=== PATIENT | female | born 1995 | race American Indian/Alaskan Native ===

== ENCOUNTER 2019-08-19 22:52 | Emergency (ER) | payer SELFPAY ==
[2019-08-19 23:57] LABS: Bilirubin,Urine NEG (Negative); Blood,Urine NEG (Negative); Color,Urine Yellow (Yellow); HCG Qualitative,Urine Negative (Negative); Mucus,Urine FEW /HPF; Protein,Urine <15 mg/dL mg/dL (Negative)
--- NOTE | 2019-08-20 01:38 | Emergency Department Report ---
ED General Adult HPI - General Chief complaint: Abdominal Pain Stated complaint: LEG, HEAD, HAND, PAIN Source: patient Mode of arrival: Ambulatory Limitations: No Limitations - History of Present Illness Initial comments: 24yo female states that she was arrested earlier and while she was handcuffed she was laid on. She states than an officer laid across her with his body weight. -: Sudden Location: upper extremity, lower extremity Radiation: non-radiation Severity scale (0 -10): 9 Quality: aching Consistency: constant Improves with: none Worsens with: movement Treatments Prior to Arrival: none - Related Data Allergies Allergy/AdvReac Type Severity Reaction Status Date / Time No Known Allergies Allergy Verified 08/19/19 22:58 ED Review of Systems ROS: Stated complaint: LEG, HEAD, HAND, PAIN Other details as noted in HPI ED Past Medical Hx - Past Medical History Previous Medical History?: Yes Additional medical history: ovarian cyst - Surgical History Past Surgical History?: No - Social History Smoking Status: Current Every Day Smoker Substance Use Type: None ED Physical Exam - General Limitations: No Limitations General appearance: alert, in no apparent distress - Head Head exam: Present: atraumatic, normocephalic - Eye Eye exam: Present: normal appearance, PERRL, EOMI Pupils: Present: normal accommodation - ENT ENT exam: Present: normal exam, normal orophraynx - Neck Neck exam: Present: normal inspection, tenderness (R sided neck tenderness) - Respiratory Respiratory exam: Present: normal lung sounds bilaterally - Cardiovascular Cardiovascular Exam: Present: regular rate, normal rhythm, normal heart sounds - GI/Abdominal GI/Abdominal exam: Present: soft, distended, normal bowel sounds - Rectal Rectal exam: Present: deferred - Extremities Exam Extremities exam: Present: tenderness (tenderness at the R and L ankle; tenderness of the R knee) - Back Exam Back exam: Present: normal inspection, full ROM - Neurological Exam Neurological exam: Present: alert, altered, oriented X3 - Psychiatric Psychiatric exam: Present: normal affect, normal mood - Skin Skin exam: Present: other (erythematous stuart on the R wrist, R and L lower legs, and both ankles) ED Course Vital Signs 08/19/19 08/20/19 23:01 02:41 Temperature 98.1 F Pulse Rate 77 81 Respiratory 18 18 Rate Blood Pressure 108/72 120/74 [Right] O2 Sat by Pulse 100 100 Oximetry ED Medical Decision Making - Radiology Data Radiology results: report reviewed - Medical Decision Making Pt's imaging result showed no fractures. She was told to take Motrin as needed. Pt verbalized understanding of the plan of care and agreed. Pt was instructed to f/u with PCP and see ED as needed. Critical care attestation.: If time is entered above; I have spent that time in minutes in the direct care of this critically ill patient, excluding procedure time. ED Disposition Clinical Impression: Leg pain, bilateral, Bilateral ankle pain, Bilateral wrist pain Disposition: - TO HOME OR SELFCARE Is pt being admited?: No Does the pt Need Aspirin: No Condition: Stable Additional Instructions: Pt was told to take Motrin as needed. She verbalized understanding of the plan of care and agreed. Pt was instructed to f/u with PCP and see ED as needed. Referrals: PRIMARY CARE, [Primary Care Provider] - 3-5 Days Time of Disposition: 03:21
[2019-08-20 02:42] VITALS: BP 120/74
--- NOTE | 2019-08-20 02:51 | XRay Report ---
XR LEFT KNEE 3 VIEWS INDICATION / CLINICAL INFORMATION: pain COMPARISON: None available. FINDINGS: BONES / JOINT(S): No acute fracture or subluxation. No significant arthritis. SOFT TISSUES: No significant abnormality. ADDITIONAL FINDINGS: None. Signer Name: Leana Figueroa MD Signed: 08/20/2019 2:47 AM Workstation Name: [id number]
--- NOTE | 2019-08-20 02:52 | XRay Report ---
XR RIGHT KNEE 3 VIEWS INDICATION / CLINICAL INFORMATION: pain COMPARISON: None available. FINDINGS: BONES / JOINT(S): No acute fracture or subluxation. No significant arthritis. SOFT TISSUES: No significant abnormality. ADDITIONAL FINDINGS: None. Signer Name: Leana Figueroa MD Signed: 08/20/2019 2:47 AM Workstation Name: [email or web address]
--- NOTE | 2019-08-20 02:53 | XRay Report ---
X-RAY LEFT ANKLE 3 VIEWS INDICATION / CLINICAL INFORMATION: pain COMPARISON: None available. FINDINGS: BONES / JOINT(S): No acute fracture or subluxation. No significant arthritis. SOFT TISSUES: No significant abnormality. ADDITIONAL FINDINGS: None. Signer Name: Leana Figueroa MD Signed: 08/20/2019 2:49 AM Workstation Name: [id number]
== END 2019-08-20 03:34 | disposition home or self-care (01) ==
LOC: ED 22:52
DX: M25.571 Pain in right ankle and joints of right foot (principal); M25.572 Pain in left ankle and joints of left foot; M25.531 Pain in right wrist; M25.532 Pain in left wrist; F17.200 Nicotine dependence, unspecified, uncomplicated
CPT/HCPCS: 81001; 81025; 99284

== ENCOUNTER 2019-09-18 13:12 | Emergency (ER) | payer SELFPAY ==
--- NOTE | 2019-09-18 15:57 | Event Note ---
ED Screening Note Date of service: 09/18/19 Time: 15:51 ED Screening Note: Patient c/o right thumb pain. She states she injured it about 2 weeks ago during an encounter with the police. She was seen here and had xrays but no fx. 3 days ago noticed swelling and pain around nail bed. had nails done 2 weeks ago and 2 days ago again. This initial assessment/diagnostic orders/clinical plan/treatment(s) is/are subject to change based on patients health status, clinical progression and re-assessment by fellow clinical providers in the ED. Further treatment and workup at subsequent clinical providers discretion. Patient/guardian urged not to elope from the ED as their condition may be serious if not clinically assessed and managed. Initial orders include: Adacel I&D Lidocaine
[2019-09-18] MEDS ORDERED: TETANUS,DIPH,PERTUSS(ACELL) VACCINE 0.5 ML SYRINGE IM ONE (15:58)
[2019-09-18] MEDS ORDERED: LIDOCAINE (1%) 10 MG/1 ML VIAL 20 ML MDV INFILTRATI ONE (15:59)
[2019-09-18] MEDS ORDERED: ACETAMINOPHEN 325 MG TAB PO ONE (18:35)
[2019-09-18] MEDS ORDERED: IBUPROFEN 400 MG TAB PO ONE (18:35)
[2019-09-18] MEDS ORDERED: SULFAMETHOXAZOLE/TRIMETHOPRIM 800/160MG DS TAB PO ONE (18:36)
--- NOTE | 2019-09-18 19:42 | Emergency Department Report ---
ED General Adult HPI - General Chief complaint: Extremity Injury, Upper Stated complaint: BODY PAIN Time Seen by Provider: 09/18/19 15:51 Source: patient Mode of arrival: Ambulatory Limitations: No Limitations - History of Present Illness Initial comments: Patient is a 24-year-old, [place] female who presented to the ED with distal right thumb swelling, severe pain and erythematous rash for 2 weeks, worse in the last 2 days. Patient denies dizziness, numbness, tingling or weakness of right hand, fever, chills, nausea and vomiting. Patient says that she had artificial nails that puncture the right thumb at the base of the nail bed when she was in police custody weeks ago. Patient states that the pain is worsened the last 1 week is within the last 2 days with swelling such that she is unable to perform an active range of motion of the right thumb. MD Complaint: right thumb swollen painful rash -: Sudden, week(s) (2) Location: upper extremity (right thumb) Radiation: distal (right thumb) Severity scale (0 -10): 10 Quality: aching, sharp Consistency: constant Improves with: none Worsens with: movement Associated Symptoms: denies other symptoms. denies: confusion, cough, diaphoresis, fever/chills, headaches, loss of appetite, nausea/vomiting, shortness of breath, weakness, other Treatments Prior to Arrival: none - Related Data Previous Rx's Medication Instructions Recorded Last Taken Type Acetaminophen/Codeine [Tylenol 1 tab PO Q6H PRN #12 tab 09/18/19 Unknown Rx /Codeine # 3 tab] Ibuprofen [Motrin] 400 mg PO Q8H PRN #20 tablet 09/18/19 Unknown Rx Sulfamethoxazole/Trimethoprim 1 each PO Q12H #20 tablet 09/18/19 Unknown Rx [Bactrim DS TAB] Allergies Allergy/AdvReac Type Severity Reaction Status Date / Time No Known Allergies Allergy Verified 08/19/19 22:58 ED Review of Systems ROS: Stated complaint: BODY PAIN Other details as noted in HPI Constitutional: denies: chills, fever Eyes: denies: eye pain, eye discharge, vision change ENT: denies: ear pain, throat pain Respiratory: denies: cough, shortness of breath, wheezing Cardiovascular: denies: chest pain, palpitations Endocrine: no symptoms reported Gastrointestinal: denies: abdominal pain, nausea, diarrhea Genitourinary: denies: urgency, dysuria, discharge Musculoskeletal: joint swelling (right thumb), arthralgia (Swollen painful distal right thumb with erythematous rash). denies: back pain Skin: rash (erythematous distal right thumb swelling), change in color (mildly erythematous rash on distal right thumb). denies: lesions, change in hair/nails, pruritus Neurological: denies: headache, weakness, paresthesias Psychiatric: denies: anxiety, depression Hematological/Lymphatic: denies: easy bleeding, easy bruising ED Past Medical Hx - Past Medical History Additional medical history: ovarian cyst - Social History Smoking Status: Current Every Day Smoker Substance Use Type: None - Medications Home Medications: Home Medications Medication Instructions Recorded Confirmed Last Taken Type Acetaminophen/Codeine [Tylenol 1 tab PO Q6H PRN #12 tab 09/18/19 Unknown Rx /Codeine # 3 tab] Ibuprofen [Motrin] 400 mg PO Q8H PRN #20 tablet 09/18/19 Unknown Rx Sulfamethoxazole/Trimethoprim 1 each PO Q12H #20 tablet 09/18/19 Unknown Rx [Bactrim DS TAB] ED Physical Exam - General Limitations: No Limitations General appearance: alert, in no apparent distress - Head Head exam: Present: atraumatic, normocephalic, normal inspection - Eye Eye exam: Present: normal appearance, PERRL, EOMI Pupils: Present: normal accommodation - ENT ENT exam: Present: normal exam, normal orophraynx, mucous membranes moist, TM's normal bilaterally, normal external ear exam - Neck Neck exam: Present: normal inspection, full ROM. Absent: tenderness, lymphadenopathy, thyromegaly - Respiratory Respiratory exam: Present: normal lung sounds bilaterally. Absent: respiratory distress, wheezes, rales, rhonchi, chest wall tenderness, decreased breath sounds, prolonged expiratory - Cardiovascular Cardiovascular Exam: Present: regular rate, normal rhythm, normal heart sounds. Absent: systolic murmur, diastolic murmur, rubs, gallop - GI/Abdominal GI/Abdominal exam: Present: soft, normal bowel sounds. Absent: distended, tenderness, guarding, rebound, hyperactive bowel sounds, hypoactive bowel sounds - Extremities Exam Extremities exam: Present: normal inspection, full ROM, tenderness (distal right thumb tenderness with swelling due to erythematous rash), normal capillary refill, joint swelling (distal right thumb). Absent: pedal edema, calf tenderness - Back Exam Back exam: Present: normal inspection, full ROM - Neurological Exam Neurological exam: Present: alert, oriented X3, CN II-XII intact, normal gait, reflexes normal - Psychiatric Psychiatric exam: Present: normal affect, normal mood - Skin Skin exam: Present: warm, dry, intact, normal color, rash (erythematous swollen rash on distal right thumb with tenderness), erythema ED Course Vital Signs 09/18/19 09/18/19 18:45 18:46 Respiratory 18 18 Rate - Reevaluation(s) Reevaluation #1: 09/18/19 20:05 This is a 24-year-old female who presented to the ED with painful swollen distal right thumb with erythematous rash for 2 weeks, worse in the last 1 week. In the ED, patient is alert and oriented 3 and is not in distress but anxious. Patient was treated for pain and also given initial oral antibiotics indicated. Right thumb paronychia was incised and drained per protocol outpatient procedure well. Patient was discharged home on medications including antibiotics and pain medications, and was advised to follow-up with her primary care physician in 7- 10 days for reevaluation or return to the ED immediately if symptoms get worse. - I & D Right Distal Finger Type of Procedure: Simple Site: distal right thumb Blade Size: 11 I & D Procedure: betadine prep, sterile drapes applied, sterile dressing applied, gauze wick placed Progress: Upon application of lidocaine 1% for anesthesia, the wound was cleaned t horoughly and incised and drained. Copious amounts of purulent discharge drained from the wound. The wound was then thoroughly cleaned and debrided and a sterile gauze wick used to pack the wound. The wound was then dressed appropriately and patient discharged home on pain medications and oral antibiotics. Patient tolerated the procedure well. Patient was advised to remove the packing after 2 days, clean the wound and dressed with Band-Aid and continue taking the antibiotics. Patient was advised to follow-up with her primary care physician in 7-10 days for reevaluation or return to the ED immediately if symptoms get worse. ED Medical Decision Making - Medical Decision Making This is a 24-year-old female who presented to the ED with painful swollen distal right thumb with erythematous rash for 2 weeks, worse in the last 1 week. In the ED, patient is alert and oriented 3 and is not in distress but anxious. Patient was treated for pain and also given initial oral antibiotics indicated. Right thumb paronychia was incised and drained per protocol outpatient procedure well. Patient was discharged home on medications including antibiotics and pain medications, and was advised to follow-up with her primary care physician in 7- 10 days for reevaluation or return to the ED immediately if symptoms get worse. - Differential Diagnosis paronychia of right thumb; cellulitis of right thumb Critical care attestation.: If time is entered above; I have spent that time in minutes in the direct care of this critically ill patient, excluding procedure time. ED Disposition Clinical Impression: Acute paronychia of right thumb, Cellulitis of right thumb Disposition: DC- TO HOME OR SELFCARE Is pt being admited?: No Does the pt Need Aspirin: No Condition: Stable Instructions: Paronychia (ED) Additional Instructions: Take medications with food, drink plenty of fluids and follow-up with your primary care physician in 7-10 days for reevaluation. Return to the ED immediately if symptoms get worse. Prescriptions: Sulfamethoxazole/Trimethoprim [Bactrim DS TAB] 1 each PO Q12H #20 tablet Ibuprofen [Motrin] 400 mg PO Q8H PRN #20 tablet PRN Reason: Pain , Severe (7-10) Acetaminophen/Codeine [Tylenol /Codeine # 3 tab] 1 tab PO Q6H PRN #12 tab PRN Reason: Pain , Severe (7-10) Referrals: PRIMARY CARE, [Primary Care Provider] - 3-5 Days Time of Disposition: 19:38 Print Language: URDU
[2019-09-18 20:05] VITALS: BP 118/84
== END 2019-09-18 20:04 | disposition home or self-care (01) ==
LOC: ED 13:12
DX: L03.011 Cellulitis of right finger (principal); F17.200 Nicotine dependence, unspecified, uncomplicated; Z79.899 Other long term (current) drug therapy

== ENCOUNTER 2020-08-14 14:28 | Emergency (ER) | payer SELFPAY ==
[2020-08-14] MEDS ORDERED: MORPHINE 2 MG/1 ML INJ IV ONE (14:33)
[2020-08-14] MEDS ORDERED: ONDANSETRON 4 MG/2 ML INJ IV ONE (14:33)
[2020-08-14] MEDS ORDERED: SODIUM CHLORIDE 0.9% 1000 ML 1,000 ML IV ONE (15:16)
[2020-08-14] MEDS ORDERED: MORPHINE 4 MG/1 ML INJ IV ONE (15:19)
--- NOTE | 2020-08-14 15:20 | Emergency Department Report ---
HPI - General Chief Complaint: Abdominal Pain Time Seen by Provider: 08/14/20 15:04 - HPI HPI: Room 8 The patient is a 25-year-old female present with a chief complaint of abdominal pain. Patient states she is has a history of intermittent abdominal pain for the past 5 years attributed to ovarian cyst. Patient states the pain began again 4 days ago. Patient states the pain is in the right abdomen and intermittent in nature. Patient states she has not had an appetite for the past 4 days. Patient denies dysuria, hematuria or vaginal discharge. Patient states she's never had a cycle ED Past Medical Hx - Past Medical History Additional medical history: ovarian cyst - Surgical History Past Surgical History?: No - Social History Smoking Status: Current Every Day Smoker (1 pack/day) Substance Use Type: None (Denies illicit drug use), Alcohol (Occasional) - Medications Home Medications: Home Medications Medication Instructions Recorded Confirmed Last Taken Type Ibuprofen [Motrin] 400 mg PO Q8H PRN #20 tablet 09/18/19 08/14/20 Unknown Rx Sulfamethoxazole/Trimethoprim 1 each PO Q12H #20 tablet 09/18/19 08/14/20 Unkno wn Rx [Bactrim DS TAB] HYDROcodone/APAP 5-325 [[place] 1 - 2 each PO Q6HR PRN #10 tablet 08/14/20 Unknown Rx 5/325] Ondansetron [Zofran ODT TAB] 8 mg PO Q8HR #20 tab.rapdis 08/14/20 Unknown Rx Sulfamethoxazole/Trimethoprim 1 each PO BID #14 tablet 08/14/20 Unknown Rx [Bactrim DS TAB] ED Review of Systems ROS: Stated complaint: ABDOMINAL PAIN Other details as noted in HPI Constitutional: denies: fever Respiratory: no symptoms reported Endocrine: no symptoms reported Gastrointestinal: abdominal pain, nausea, vomiting Genitourinary: denies: dysuria, hematuria, discharge Physical Exam - Physical Exam Vital Signs: Vital Signs 08/14/20 08/14/20 14:31 14:52 Temperature 98 F Pulse Rate 68 68 Respiratory 20 18 Rate Blood Pressure 120/92 O2 Sat by Pulse 98 100 Oximetry Physical Exam: GENERAL: The patient is well-developed well-nourished female lying on stretcher sleeping not appearing to be in acute distress (pain medication has been administered). [] HEENT: Normocephalic. Atraumatic. Extraocular motions are intact. Patient has moist mucous membranes. NECK: Supple. Trachea midline CHEST/LUNGS: Clear to auscultation. There is no respiratory distress noted. HEART/CARDIOVASCULAR: Regular. There is no tachycardia. There is no gallop rub or murmur. ABDOMEN: Abdomen is soft, with tenderness to palpation in the right mid abdomen. There is no tenderness to palpation in the right lower quadrant. Patient has normal bowel sounds. There is no abdominal distention. SKIN: There is no rash. There is no edema. There is no diaphoresis. NEURO: The patient is awake, alert, and oriented. The patient is cooperative. The patient has normal speech MUSCULOSKELETAL: There is no evidence of acute injury. ED Course Vital Signs 08/14/20 08/14/20 14:31 14:52 Temperature 98 F Pulse Rate 68 68 Respiratory 20 18 Rate Blood Pressure 120/92 O2 Sat by Pulse 98 100 Oximetry ED Medical Decision Making - Lab Data Result diagrams: 08/14/20 14:50 08/14/20 14:50 Laboratory Tests 08/14/20 08/14/20 08/14/20 14:50 14:50 14:50 WBC 8.1 RBC 4.67 Hgb 15.8 H Hct 46.4 H MCV 99 H MCH 34 H MCHC 34 RDW 12.4 L Plt Count 178 Lymph % (Auto) 16.1 [place] % (Auto) 6.6 Eos % (Auto) 0.4 Baso % (Auto) 0.4 Lymph # (Auto) 1.3 [place] # (Auto) 0.5 Eos # (Auto) 0.0 Baso # (Auto) 0.0 Seg Neutrophils % 76.5 H Seg Neutrophils # 6.2 Sodium 137 Potassium 3.4 L Chloride 93.9 L Carbon Dioxide 21 L Anion Gap 26 BUN 29 H Creatinine 0.8 Estimated GFR > 60 BUN/Creatinine Ratio 36 Glucose 97 Calcium 10.4 H Total Bilirubin 1.00 AST 30 ALT 44 Alkaline Phosphatase 75 Total Protein 8.4 H Albumin 4.8 Albumin/Globulin Ratio 1.3 Lipase 13 HCG, Qual Negative Urine Color Urine Turbidity Urine pH Ur Specific [place] Urine Protein Urine Glucose (UA) Urine Ketones Urine Blood Urine Nitrite Ur Reducing Substances Urine Bilirubin Urine Ictotest Urine Urobilinogen Ur Leukocyte Esterase Urine WBC (Auto) Urine RBC (Auto) U Epithel Cells (Auto) Urine Bacteria (Auto) Hyaline Casts Urine Mucus Urine Opiates Screen Urine Methadone Screen Ur Barbiturates Screen Ur Phencyclidine Scrn Ur Amphetamines Screen U Benzodiazepines Scrn Urine Cocaine Screen U Marijuana (THC) Screen Drugs of Abuse Note 08/14/20 08/14/20 15:28 15:28 WBC RBC Hgb Hct MCV MCH MCHC RDW Plt Count Lymph % (Auto) [place] % (Auto) Eos % (Auto) Baso % (Auto) Lymph # (Auto) [place] # (Auto) Eos # (Auto) Baso # (Auto) Seg Neutrophils % Seg Neutrophils # Sodium Potassium Chloride Carbon Dioxide Anion Gap BUN Creatinine Estimated GFR BUN/Creatinine Ratio Glucose Calcium Total Bilirubin AST ALT Alkaline Phosphatase Total Protein Albumin Albumin/Globulin Ratio Lipase HCG, Qual Urine Color Yellow Urine Turbidity Slightly-cloudy Urine pH 5.0 Ur Specific [place] 1.027 Urine Protein 100 mg/dl Urine Glucose (UA) Neg Urine Ketones 80 Urine Blood Sm Urine Nitrite Neg Ur Reducing Substances Not Reportable Urine Bilirubin Neg Urine Ictotest Not Reportable Urine Urobilinogen < 2.0 Ur Leukocyte Esterase Tr Urine WBC (Auto) 16.0 H Urine RBC (Auto) 5.0 U Epithel Cells (Auto) 7.0 Urine Bacteria (Auto) 1+ Hyaline Casts 2 Urine Mucus Few Urine Opiates Screen Presumptive positive Urine Methadone Screen Presumptive negative Ur Barbiturates Screen Presumptive negative Ur Phencyclidine Scrn Presumptive negative Ur Amphetamines Screen Presumptive negative U Benzodiazepines Scrn Presumptive negative Urine Cocaine Screen Presumptive negative U Marijuana (THC) Screen Presumptive positive Drugs of Abuse Note Disclamer - Radiology Data Radiology results: report reviewed (CT abdomen pelvis, pelvic ultrasound), image reviewed (CT abdomen pelvis, pelvic ultrasound) [address] [address] Cat Scan Report Signed Patient: ROMAN JOHNS MR#: [id number] : 1995 Acct:[id number] Age/Sex: 25 / F ADM Date: 08/14/20 Loc: ED Attending Dr: Ordering Physician: PAO HOPKINS MD Date of Service: 08/14/20 Procedure(s): CT abdomen pelvis w con Accession Number(s): [id number] cc: PAO HOPKINS MD CT ABDOMEN AND PELVIS WITH CONTRAST INDICATION: Right-sided abdominal pain CONTRAST: 100 cc Omnipaque 300 IV COMPARISON: None available. All CT scans at this location are performed using CT dose reduction for ALARA by means of automated exposure control. FINDINGS: Lung bases are clear. No pneumoperitoneum is seen. I see no abnormalities of the liver, spleen, kidneys, adrenals, pancreas, bile ducts, or gallbladder. No urinary obstructive changes are seen. No evidence of bowel obstruction is noted. No focal inflammatory changes are seen. No lymphadenopathy is noted. No free fluid is seen. Appendix appears within normal limits. IUD is seen in the uterine fundus centrally. No adnexal masses are seen. Physiologic type bilateral ovarian cysts are noted. IMPRESSION: No acute abnormalities are seen Signer Name: Conner Campbell MD Signed: 08/14/2020 4:35 PM Workstation Name: [id number] Transcribed By: GJ Dictated By: Conner Campbell MD Electronically Authenticated By: Conner Campbell MD Signed Date/Time: 08/14/20 1635 DD/ 1628 TD/TT: [facility] [address] [place] [address] Ultrasound Report Signed Patient: ROMAN JOHNS MR#: [id number] : 1995 Acct:[id number] Age/Sex: 25 / F ADM Date: 08/14/20 Loc: ED Attending Dr: Ordering Physician: PAO HOPKINS MD Date of Service: 08/14/20 Procedure(s): US transvaginal Accession Number(s): [id number] cc: PAO HOPKINS MD US pelvis duplex doppler comp, US transvaginal INDICATION / CLINICAL INFORMATION: Right-sided pain history of ovarian cyst. TECHNIQUE: Transabdominal and Transvaginal. Duplex Color Doppler used: Yes. COMPARISON: None available FINDINGS: UTERUS: Measures 7.3 x 3.3 x 5.3 cm. -Intrauterine device is present in lower the endometrial canal. Endometrial stripe is normal thickness. - Mass l esions: None. RIGHT ADNEXA: No significant ovarian cyst or mass. Normal color Doppler blood flow. LEFT ADNEXA: 2.6 cm left ovarian cyst is most certainly benign in etiology. No significant ovarian cyst or mass. Normal color Doppler blood flow. URINARY BLADDER: No significant abnormality. FREE FLUID: None. ADDITIONAL FINDINGS: None. IMPRESSION: 1. The intrauterine device is low lying and approximately 3.3 cm in the fundus. A low-lying intrauterine device can result in pain. Correlate clinically. Signer Name: Joel Hernandez MD Signed: 08/14/2020 5:40 PM Workstation Name: [id number] Transcribed By: SNOW Dictated By: Joel Hernandez MD Electronically Authenticated By: Joel Hernandez MD Signed Date/Time: 08/14/201739 DD/ 36 TD/TT: - Differential Diagnosis Ovarian cyst, ovarian torsion, appendicitis, cholelithiasis, gastritis, Critical care attestation.: If time is entered above; I have spent that time in minutes in the direct care of this critically ill patient, excluding procedure time. ED Disposition Clinical Impression: Left ovarian cyst, UTI (urinary tract infection), Acute abdominal pain Disposition: TO HOME OR SELFCARE Is pt being admited?: No Does the pt Need Aspirin: No Condition: Stable Instructions: Abdominal Pain (ED) Additional Instructions: Return to the emergency department should you develop worsening symptoms, inability to tolerate food or liquids, high fever or any other concerns Prescriptions: Sulfamethoxazole/Trimethoprim [Bactrim DS TAB] 1 each PO BID #14 tablet HYDROcodone/APAP 5-325 [[place] 5/325] 1 - 2 each PO Q6HR PRN #10 tablet PRN Reason: Pain Ondansetron [Zofran ODT TAB] 8 mg PO Q8HR #20 tab.rapdis Referrals: [facility] [Provider Group] - 3-5 Days Time of Disposition: 17:56
[2020-08-14 15:52] LABS: Alanine Aminotransferase 44 units/L (7-56); Albumin 4.8 g/dL (3.9-5); BUN/Creatinine Ratio 36; Basophils % (Auto) 0.4 % (0.0-1.8); Blood Urea Nitrogen 29 mg/dL (7-17); Calcium 10.4 mg/dL (8.4-10.2); Eosinophils % (Auto) 0.4 % (0.0-4.3); Hematocrit 46.4 % (30.3-42.9); Hemoglobin 15.8 gm/dl (10.1-14.3); Hemolysis Index 12; Lymphocytes # (Auto) 1.3 K/mm3 (1.2-5.4); Lymphocytes % (Auto) 16.1 % (13.4-35.0); Mean Corpuscular HGB Conc 34 % (30-34); Mean Corpuscular Volume 99 fl (79-97); Monocytes # (Auto) 0.5 K/mm3 (0.0-0.8); Monocytes % (Auto) 6.6 % (0.0-7.3); Platelet Count 178 K/mm3 (140-440); Red Blood Count 4.67 M/mm3 (3.65-5.03); Red Cell Distribution Width 12.4 % (13.2-15.2)
[2020-08-14 16:04] LABS: Bacteria,Urine 1+ /HPF (Negative); Hyaline Casts,Urine 2 /LPF; Mucus,Urine FEW /HPF
[2020-08-14 16:05] LABS: Amphetamine Screen,Urine PRESUMPTIVE NEGATIVE; Benzodiazepines Screen,Urine PRESUMPTIVE NEGATIVE; Cannabinoid Screen,Urine PRESUMPTIVE POSITIVE; Cocaine Screen,Urine PRESUMPTIVE NEGATIVE; Methadone Screen,Urine PRESUMPTIVE NEGATIVE; Opiate Screen,Urine PRESUMPTIVE POSITIVE
[2020-08-14 16:08] LABS: Bilirubin,Urine NEG (Negative); Blood,Urine SM (Negative); Color,Urine Yellow (Yellow); Urobilinogen,Urine < 2.0 mg/dL (<2.0)
--- NOTE | 2020-08-14 16:40 | Cat Scan Report ---
CT ABDOMEN AND PELVIS WITH CONTRAST INDICATION: Right-sided abdominal pain CONTRAST: 100 cc Omnipaque 300 IV COMPARISON: None available. All CT scans at this location are performed using CT dose reduction for ALARA by means of automated e xposure control. FINDINGS: Lung bases are clear. No pneumoperitoneum is seen. I see no abnormalities of the liver, spl een, kidneys, adrenals, pancreas, bile ducts, or gallbladder. No urinary obstructive changes are seen . No evidence of bowel obstruction is noted. No focal inflammatory changes are seen. No lymphadenopat hy is noted. No free fluid is seen. Appendix appears within normal limits. IUD is seen in the uterine fundus centrally. No adnexal masses are seen. Physiologic type bilateral ovarian cysts are noted. IMPRESSION: No acute abnormalities are seen Signer Name: Conner Campbell MD Signed: 08/14/2020 4:35 PM Workstation Name: [id number]
--- NOTE | 2020-08-14 17:44 | Ultrasound Report ---
US pelvis duplex doppler comp, US transvaginal INDICATION / CLINICAL INFORMATION: Right-sided pain history of ovarian cyst. TECHNIQUE: Transabdominal and Transvaginal. Duplex Color Doppler used: Yes. COMPARISON: None available FINDINGS: UTERUS: Measures 7.3 x 3.3 x 5.3 cm. -Intrauterine device is present in lower the endometrial canal. Endometrial stripe is normal thicknes s. - Mass lesions: None. RIGHT ADNEXA: No significant ovarian cyst or mass. Normal color Doppler blood flow. LEFT ADNEXA: 2.6 cm left ovarian cyst is most certainly benign in etiology. No significant ovarian cy st or mass. Normal color Doppler blood flow. URINARY BLADDER: No significant abnormality. FREE FLUID: None. ADDITIONAL FINDINGS: None. IMPRESSION: 1. The intrauterine device is low lying and approximately 3.3 cm in the fundus. A low-lying intrauter ine device can result in pain. Correlate clinically. Signer Name: Joel Hernandez MD Signed: 08/14/2020 5:40 PM Workstation Name: [id number]
[2020-08-14 18:16] VITALS: BP 99/64
== END 2020-08-14 18:18 | disposition home or self-care (01) ==
LOC: ED 14:28
DX: N83.202 Unspecified ovarian cyst, left side (principal); F17.200 Nicotine dependence, unspecified, uncomplicated; Z79.899 Other long term (current) drug therapy
CPT/HCPCS: 36415; 74177; 76830; 80053; 80307; 81001; 83690; 84703; 85025; 87086; 93975; 96361; 96374; 96375; 96376; 99284; J2270; J2405; J7030; Q9967

== ENCOUNTER 2021-10-25 09:08 | Emergency (ER) | payer SELFPAY ==
[2021-10-25] MEDS ORDERED: MORPHINE 4 MG/1 ML INJ IV ONE ×2 (10:41→13:50)
[2021-10-25] MEDS ORDERED: ONDANSETRON 4 MG/2 ML INJ IV ONE (10:41)
--- NOTE | 2021-10-25 10:43 | Event Note ---
Date: 10/25/21 EMS documentation not available at time of chart dictation Verbal report received from emergency medical service Medical screening examination: 26-year-old female, with history of recurrent right lower quadrant abdominal pain, presenting to the ER with a complaint of suprapubic and right lower quadrant pain, which she states is similar to prior episodes of ovarian cyst. Patient seen in August 2020 for similar symptoms, please see CT scan and ultrasound from before. On initial examination she is tender, and appears uncomfortable in her stretcher. She is moving around 4 extremities. We will treat her symptoms and pain, obtain appropriate laboratory studies, urinalysis, pelvic ultrasound, reassess. CT ABDOMEN AND PELVIS WITH CONTRAST INDICATION: Right-sided abdominal pain CONTRAST: 100 cc Omnipaque 300 IV COMPARISON: None available. All CT scans at this location are performed using CT dose reduction for ALARA by means of automated exposure control. FINDINGS: Lung bases are clear. No pneumoperitoneum is seen. I see no abnormalities of the liver, spleen, kidneys, adrenals, pancreas, bile ducts, or gallbladder. No urinary obstructive changes are seen. No evidence of bowel obstruction is noted. No focal inflammatory changes are seen. No lymphadenopathy is noted. No free fluid is seen. Appendix appears within normal limits. IUD is seen in the uterine fundus centrally. No adnexal masses are seen. Physiologic type bilateral ovarian cysts are noted. IMPRESSION: No acute abnormalities are seen Signer Name: Conner Campbell MD Signed: 08/14/2020 3:35 PM Workstation Name: [id number] US pelvis duplex doppler comp, US transvaginal INDICATION / CLINICAL INFORMATION: Right-sided pain history of ovarian cyst. TECHNIQUE: Transabdominal and Transvaginal. Duplex Color Doppler used: Yes. COMPARISON: None available FINDINGS: UTERUS: Measures 7.3 x 3.3 x 5.3 cm. -Intrauterine device is present in lower the endometrial canal. Endometrial stripe is normal thickness. - Mass lesions: None. RIGHT ADNEXA: No significant ovarian cyst or mass. Normal color Doppler blood flow. LEFT ADNEXA: 2.6 cm left ovarian cyst is most certainly benign in etiology. No significant ovarian cyst or mass. Normal color Doppler blood flow. URINARY BLADDER: No significant abnormality. FREE FLUID: None. ADDITIONAL FINDINGS: None. IMPRESSION: 1. The intrauterine device is low lying and approximately 3.3 cm in the fundus. A low-lying intrauterine device can result in pain. Correlate clinically. Signer Name: Joel Hernandez MD Signed: 08/14/2020 4:40 PM Workstation Name: [id number]
[2021-10-25 11:30] LABS: Basophils % (Auto) 0.4 % (0.0-1.8); Hematocrit 40.2 % (30.3-42.9); Hemoglobin 13.2 gm/dl (10.1-14.3); Lymphocytes # (Auto) 0.7 K/mm3 (1.2-5.4); Lymphocytes % (Auto) 7.3 % (13.4-35.0); Mean Corpuscular HGB Conc 33 % (30-34); Mean Corpuscular Volume 99 fl (79-97); Monocytes # (Auto) 0.3 K/mm3 (0.0-0.8); Monocytes % (Auto) 3.4 % (0.0-7.3); Platelet Count 150 K/mm3 (140-440); Red Blood Count 4.05 M/mm3 (3.65-5.03)
[2021-10-25 11:50] LABS: Blood Urea Nitrogen 19 mg/dL (7-17); Calcium 9.2 mg/dL (8.4-10.2); Hemolysis Index 4
[2021-10-25 12:01] LABS: BUN/Creatinine Ratio 38
--- NOTE | 2021-10-25 12:50 | Ultrasound Report ---
ULTRASOUND PELVIS INDICATION / CLINICAL INFORMATION: pelvic lower abd pain, hx of ov cyst. TECHNIQUE: Transabdominal. Duplex Color Doppler used: Yes. COMPARISON: 08/14/2020 FINDINGS: UTERUS: Uterus measures 7.9 cm in length. Endometrial stripe measures 11 mm. RIGHT ADNEXA: No significant ovarian cyst or mass. Normal color Doppler blood flow. The ovary measure s 4.1 cm in length. There is a 16 mm cyst characteristic of physiologic cyst.. LEFT ADNEXA: No significant ovarian cyst or mass. Normal color Doppler blood flow. The left ovary valentine sures 2.6 cm in length. URINARY BLADDER: No significant abnormality. FREE FLUID: None. ADDITIONAL FINDINGS: None. IMPRESSION: 1. No significant abnormality. Signer Name: Aaron Gray MD Signed: 10/25/2021 12:46 PM Workstation Name: [id number]
[2021-10-25] MEDS ORDERED: MORPHINE 4 MG/1 ML INJ ONE (13:26)
[2021-10-25] MEDS ORDERED: SODIUM CHLORIDE 0.9% 1000 ML 1,000 ML IV ONE (13:45)
[2021-10-25] MEDS ORDERED: POTASSIUM CHLORIDE ER 20 MEQ TAB PO ONE (13:45)
--- NOTE | 2021-10-25 13:45 | Emergency Department Report ---
HPI - General Chief Complaint: Abdominal Pain Time Seen by Provider: 10/25/21 13:32 - HPI HPI: 26-year-old female with history of recurrent right lower quadrant abdominal pain for the past 3 years which she attributes to an ovarian cyst presents complaini ng of several hours of right lower quadrant pain. She states that the pain started today and is intermittent in nature but very severe. It is associated with some nausea. She admits to poor fluid intake and feels dehydrated and with dry mouth. There are no known aggravating or alleviating factors. She has not tried anything for her symptoms. She denies any associated fever, headache, vision change, chest pain, shortness of breath, back pain, diarrhea, constipation, dysuria, vaginal discharge, vaginal bleeding, focal weakness, sensory changes, or any other complaints she reports that her last menstrual period was October 13. ED Past Medical Hx - Past Medical History Previous Medical History?: Yes Additional medical history: ovarian cyst - Surgical History Past Surgical History?: No - Social History Smoking Status: Current Every Day Smoker (1 pack/day) Substance Use Type: None (Denies illicit drug use), Alcohol (Occasional) - Medications Home Medications: Home Medications Medication Instructions Recorded Confirmed Last Taken Type Ibuprofen [Motrin] 400 mg PO Q8H PRN #20 tablet 09/18/19 08/14/20 Unknown Rx Sulfamethoxazole/Trimethoprim 1 each PO Q12H #20 tablet 09/18/19 08/14/20 Unknown Rx [Bactrim DS TAB] HYDROcodone/APAP 5-325 [[place] 1 - 2 each PO Q6HR PRN #10 tablet 08/14/20 Unknown Rx 5/325] Ondansetron [Zofran ODT TAB] 8 mg PO Q8HR #20 tab.rapdis 08/14/20 Unknown Rx Sulfamethoxazole/Trimethoprim 1 each PO BID #14 tablet 08/14/20 Unknown Rx [Bactrim DS TAB] ED Review of Systems ROS: Stated complaint: ABDOMINAL PAIN Other details as noted in HPI Constitutional: denies: chills, fever Eyes: denies: eye pain, vision change ENT: denies: throat pain, congestion Respiratory: denies: cough, shortness of breath Cardiovascular: denies: chest pain, palpitations Gastrointestinal: abdominal pain, nausea. denies: vomiting, diarrhea, constipation Genitourinary: denies: dysuria, frequency, hematuria, discharge, abnormal menses Musculoskeletal: denies: back pain, joint swelling Skin: denies: rash, lesions Neurological: denies: headache, weakness, numbness Hematological/Lymphatic: denies: easy bleeding Physical Exam - Physical Exam Vital Signs: Vital Signs 10/25/21 13:23 Temperature 98.3 F Pulse Rate 85 Respiratory 18 Rate Blood Pressure 115/60 [Left] O2 Sat by Pulse 100 Oximetry Physical Exam: GENERAL: Well developed and well nourished. In distress secondary to pain. Writhing in the bed. HEAD: Normocephalic. No obvious signs of trauma. ENT: Very dry mucous membranes. EYES: Extraocular movements are intact. Pupils are equal round and reactive to light bilaterally NECK: Supple. Full ROM is intact. Trachea is midline. LUNGS: Tachypneic. Equal chest rise bilaterally. Clear to auscultation bilaterally. CARDIOVASCULAR: Regular rate and rhythm. No murmurs or rubs. VASCULAR: Cap refill < 2 seconds ABDOMEN: Abdomen is soft and nondistended. There is tenderness in the right lower quadrant of the abdomen. There is no guarding or rebound tenderness. SKIN: Skin is warm and dry NEURO: Patient is awake, alert, and oriented. cellular phone repairer II-XII grossly intact. No focal deficits. Normal motor and sensory exam throughout. Normal speech. MUSCULOSKELETAL: No obvious deformities. No significant tenderness. Normal ROM throughout. BACK/SPINE: No costovertebral angle tenderness. ED Course Vital Signs 10/25/21 13:23 Temperature 98.3 F Pulse Rate 85 Respiratory 18 Rate Blood Pressure 115/60 [Left] O2 Sat by Pulse 100 Oximetry ED Medical Decision Making - Lab Data Result diagrams: 10/25/21 11:19 10/25/21 11:19 - Medical Decision Making 26-year-old female with history of recurrent right lower quadrant abdominal pain for the past 3 years presents complaining of right lower quadrant abdominal pain for the past several hours. She is afebrile with normal vital signs. Initial orders were placed including pelvic ultrasound and some labs from triage. She was also ordered morphine and Zofran. On physical exam, the patient is writhing in bed complaining of pain. She has very dry mucous membranes. She is tender in the right lower quadrant of the abdomen without guarding or rebound. She has no CVA tenderness. Reviewed results of initial orders placed includes labs which reveal no significant leukocytosis or anemia. Kidney function is normal and there are no significant electrolyte abnormalities other than mild hypokalemia with potassium of 3.5. hCG is negative. We will add on LFTs, lipase, urinalysis, as well as CT of the abdomen pelvis given the degree of the patient's pain. We will give 1 L of IV fluids and 20 mg of Bentyl and reassess. ALT is very mildly elevated. Magnesium is low at 1.5. We will replete magnesium and potassium. CT of the abdomen and pelvis reveals findings consistent with pelvic congestion syndrome. When I went to speak with the patient regarding the CT findings, she is standing up at the door saying she wants to go home. She says she feels better. I explained to her the diagnosis and the need for follow-up with SNOW REMOVAL/PLOWING. She expressed understanding and agreement with this plan of care Critical care attestation.: If time is entered above; I have spent that time in minutes in the direct care of this critically ill patient, excluding procedure time. ED Disposition Clinical Impression: Hypokalemia, Hypomagnesemia, Pelvic congestion syndrome Disposition: 01 HOME / SELF CARE / HOMELESS Is pt being admited?: No Condition: Stable Instructions: Pelvic Pain, Female, Abdominal Pain (ED) Referrals: JERAD CALVERT MD [Staff Physician] - 3-5 Days
[2021-10-25] MEDS ORDERED: DICYCLOMINE 20 MG/2 ML INJ IM ONE (13:46)
[2021-10-25 14:05] LABS: Alanine Aminotransferase 73 units/L (7-56); Albumin 4.6 g/dL (3.9-5)
[2021-10-25 14:24] LABS: Bilirubin,Direct < 0.2 mg/dL (0-0.2)
--- NOTE | 2021-10-25 15:03 | Cat Scan Report ---
CT ABDOMEN AND PELVIS WITH IV CONTRAST INDICATION: RLQ pain. COMPARISON: CT 08/14/2020. Pelvic ultrasound earlier today. TECHNIQUE: All CT scans at this facility use dose modulation, automated exposure control, iterative reconstructi on or weight based dosing, when appropriate, to reduce radiation dose to as low as reasonably achieva ble. FINDINGS: Lung Bases: No significant abnormality. Skeletal System: No acute abnormality. ABDOMEN: Liver: No significant abnormality. Gallbladder: No significant abnormality. Bile Ducts: No significant abnormality. Adrenals: No significant abnormality. Right Kidney: No significant abnormality. Left Kidney: No significant abnormality. Pancreas: No significant abnormality. Spleen: No significant abnormality. Upper GI tract: No significant abnormality. Lymph Nodes: No significant adenopathy. Aorta: No significant abnormality. Additional Findings: No significant abnormality. PELVIS: Colon: No significant abnormality. Urinary Bladder and Distal Ureters: No significant abnormality. Appendix: No significant abnormality. Lymph Nodes: No significant adenopathy. Additional Findings: IUD has been removed. As on the prior there are prominent periuterine veins bila terally. IMPRESSION: 1. No acute process in the abdomen or pelvis. 2. Prominent periuterine veins could be seen in the setting of pelvic congestion syndrome. This is u nchanged since the prior CT. Signer Name: Colt Crowe MD Signed: 10/25/2021 2:58 PM Workstation Name: [id number]
[2021-10-25] MEDS ORDERED: MAGNESIUM SULFATE 1 GM in SODIUM CHLORIDE 0.9% 50 ML IV ONE (15:30)
[2021-10-25 17:53] VITALS: BP 92/48
== END 2021-10-25 17:55 | disposition home or self-care (01) ==
LOC: ED 09:08
DX: E87.6 Hypokalemia (principal); E83.42 Hypomagnesemia; N94.89 Other specified conditions associated with female genital organs and menstrual cycle; F17.200 Nicotine dependence, unspecified, uncomplicated; Z72.89 Other problems related to lifestyle; Z79.899 Other long term (current) drug therapy
CPT/HCPCS: 36415; 74177; 80048; 80076; 83690; 83735; 84702; 85025; 93975; 96361; 96372; 96374; 96375; 96376; 99284; J2270; J2405; J3475; Q9967; 80320; G0480

== ENCOUNTER 2022-08-12 07:31 | Emergency (ER) | payer SELFPAY ==
[2022-08-12] MEDS ORDERED: ONDANSETRON 4 MG/2 ML INJ IV ONE (07:58)
[2022-08-12] MEDS ORDERED: SODIUM CHLORIDE 0.9% 1000 ML 1,000 ML IV ONE (07:58)
[2022-08-12] MEDS ORDERED: HALOPERIDOL LACTATE 5 MG/1 ML INJ ONE (08:20)
[2022-08-12 08:42] LABS: Alanine Aminotransferase 25 units/L (7-56); Albumin 4.8 g/dL (3.9-5); Blood Urea Nitrogen 13 mg/dL (7-17); Calcium 9.4 mg/dL (8.4-10.2); Hemolysis Index 2
[2022-08-12 08:52] LABS: BUN/Creatinine Ratio 26
[2022-08-12 09:21] VITALS: BP 115/69
--- NOTE | 2022-08-12 09:21 | Emergency Department Report ---
ED Abdominal Pain HPI - General Chief Complaint: Abdominal Pain Stated Complaint: N/V ABD PAIN/ETOH Time Seen by Provider: 08/12/22 07:57 Source: patient, EMS Mode of arrival: Stretcher Limitations: No Limitations - History of Present Illness Initial Comments: 27-year-old -[place] female with history of alcohol abuse complaining of abdominal pain. Describes pain as cramping all over her belly. Patient reports having off and on vaginal bleeding. -: Gradual, days(s) Location: diffuse Migration to: no migration Severity scale (0 -10): 5 Quality: aching Consistency: intermittent Worsens With: nothing Associated Symptoms: denies other symptoms - Related Data Previous Rx's Medication Instructions Recorded Last Taken Type Sulfamethoxazole/Trimethoprim 1 each PO Q12H #20 tablet 09/18/19 Unknown Rx [Bactrim DS TAB] HYDROcodone/APAP 5-325 [[place] 1 - 2 each PO Q6HR PRN #10 tablet 08/14/20 Unknown Rx 5/325] Ondansetron [Zofran ODT TAB] 8 mg PO Q8HR #20 tab.rapdis 08/14/20 Unknown Rx Sulfamethoxazole/Trimethoprim 1 each PO BID #14 tablet 08/14/20 Unknown Rx [Bactrim DS TAB] Ibuprofen [Motrin 400 MG tab] 400 mg PO Q8H PRN #20 tablet 08/12/22 Unknown Rx Allergies Allergy/AdvReac Type Severity Reaction Status Date / Time No Known Allergies Allergy Verified 08/19/19 22:58 ED Review of Systems ROS: Stated complaint: N/V ABD PAIN/ETOH Other details as noted in HPI Constitutional: denies: chills, fever Eyes: denies: eye pain, eye discharge, vision change ENT: denies: ear pain, throat pain Respiratory: denies: cough, shortness of breath, wheezing Cardiovascular: denies: chest pain, palpitations Endocrine: no symptoms reported Gastrointestinal: denies: abdominal pain, nausea, diarrhea Genitourinary: denies: urgency, dysuria, discharge Musculoskeletal: denies: back pain, joint swelling, arthralgia Skin: denies: rash, lesions Neurological: denies: headache, weakness, paresthesias Psychiatric: denies: anxiety, depression Hematological/Lymphatic: denies: easy bleeding, easy bruising ED Past Medical Hx - Past Medical History Previous Medical History?: No Additional medical history: ovarian cyst - Social History Smoking Status: Current Every Day Smoker (1 pack/day) Substance Use Type: None (Denies illicit drug use), Alcohol (Occasional) - Medications Home Medications: Home Medications Medication Instructions Recorded Confirmed Last Taken Type Sulfamethoxazole/Trimethoprim 1 each PO Q12H #20 tablet 09/18/19 08/14/20 Unknown Rx [Bactrim DS TAB] HYDROcodone/APAP 5-325 [[place] 1 - 2 each PO Q6HR PRN #10 tablet 08/14/20 Unknown Rx 5/325] Ondansetron [Zofran ODT TAB] 8 mg PO Q8HR #20 tab.rapdis 08/14/20 Unknown Rx Sulfamethoxazole/Trimethoprim 1 each PO BID #14 tablet 08/14/20 Unknown Rx [Bactrim DS TAB] Ibuprofen [Motrin 400 MG tab] 400 mg PO Q8H PRN #20 tablet 08/12/22 Unknown Rx ED Physical Exam - General Limitations: No Limitations General appearance: alert, in no apparent distress - Head Head exam: Present: atraumatic, normocephalic - Eye Eye exam: Present: normal appearance - ENT ENT exam: Present: normal exam, normal orophraynx, mucous membranes moist - Neck Neck exam: Present: normal inspection. Absent: tenderness - Respiratory Respiratory exam: Present: normal lung sounds bilaterally. Absent: respiratory distress - Cardiovascular Cardiovascular Exam: Present: regular rate, normal rhythm. Absent: systolic murmur, diastolic murmur, rubs, gallop - GI/Abdominal GI/Abdominal exam: Present: soft, guarding, normal bowel sounds. Absent: distended, tenderness - Extremities Exam Extremities exam: Present: normal inspection - Back Exam Back exam: Present: normal inspection - Neurological Exam Neurological exam: Present: alert, oriented X3 - Psychiatric Psychiatric exam: Present: normal affect, normal mood - Skin Skin exam: Present: warm, dry, intact, normal color. Absent: rash ED Course Vital Signs 08/12/22 08/12/22 08/12/22 07:31 08:01 08:58 Temperature 98.7 F Pulse Rate 63 Respiratory 16 Rate Blood Pressure 115/69 Blood Pressure 118/83 [Left] O2 Sat by Pulse 98 86 87 Oximetry 08/12/22 08/12/22 11:32 11:52 Temperature Pulse Rate 98 H Respiratory 18 Rate Blood Pressure 115/69 Blood Pressure [Left] O2 Sat by Pulse Oximetry ED Medical Decision Making - Lab Data Result diagrams: 08/12/22 08:04 08/12/22 08:04 Critical care attestation.: If time is entered above; I have spent that time in minutes in the direct care of this critically ill patient, excluding procedure time. ED Disposition Clinical Impression: Pelvic pain, Alcohol abuse Disposition: HOME / SELF CARE / HOMELESS Is pt being admited?: No Does the pt Need Aspirin: No Condition: Stable Instructions: Alcohol Use Disorder, Pelvic Pain, Female, [id number], Abdominal Pain (ED) Prescriptions: Ibuprofen [Motrin 400 MG tab] 400 mg PO Q8H PRN #20 tablet PRN Reason: Pain , Severe (7-10) Referrals: MAMTA TONY MD [Primary Care Provider] - 3-5 Days
[2022-08-12 09:24] LABS: Basophils % (Auto) 0.4 % (0.0-1.8); Hematocrit 40.5 % (30.3-42.9); Hemoglobin 13.4 gm/dl (10.1-14.3); Lymphocytes # (Auto) 1.3 K/mm3 (1.2-5.4); Lymphocytes % (Auto) 15.6 % (13.4-35.0); Mean Corpuscular HGB Conc 33 % (30-34); Mean Corpuscular Volume 99 fl (79-97); Monocytes # (Auto) 0.3 K/mm3 (0.0-0.8); Monocytes % (Auto) 3.3 % (0.0-7.3); Platelet Count 157 K/mm3 (140-440); Red Blood Count 4.07 M/mm3 (3.65-5.03)
--- NOTE | 2022-08-13 12:12 | Electrocardiograph Report ---
[facility] Test Date: 2022-08-12 Test Time: 07:58:18 Pat Name: ROMAN ESTEBAN Department: Room: Gender: F Machinery Rigger: NURSE : 1995 Requested By: EVER QUICK Order Number: [id number] Reading MD: Kishore Xiong Measurements Intervals [place] Rate: 71 P: 90 UT: 132 QRS: 75 QRSD: 77 T: 30 QT: 411 QTc: 439 Interpretive Statements Sinus rhythm Multiple premature complexes, vent & supraven No previous ECG available for comparison baseline artifact Electronically Signed On 08-13-2022 9:12:12 PDT by Kishore Xiong
== END 2022-08-12 13:57 | disposition home or self-care (01) ==
LOC: ED 07:31
DX: R10.2 Pelvic and perineal pain (principal); F10.10 Alcohol abuse, uncomplicated; F17.200 Nicotine dependence, unspecified, uncomplicated
CPT/HCPCS: 36415; 80053; 83690; 85025; 93005; 96361; 96374; 99284; J1630; J2405; J7030; 80320; G0480